=== PATIENT | male | born 1940 | race Caucasian/White ===

== ENCOUNTER 2017-09-18 17:28 | Inpatient (IN) | payer MEDICARE, BC ==
[~2017-09-18] VITALS: Ht 180.3 cm; Wt 81.6 kg
--- NOTE | ~2017-09-18 | PROC ---
[address] [address] PROCEDURE REPORT Name: MARILU CABRERA Room: [address] ADM IN M.R.#: [id number] Admission: 09/18/17 Attend Phys: Rylee Garcia MD Discharge: Date of : 40 Report #: [id number] THIS REPORT FOR: //name// For GI report, please see the Provation report in Perceptive 7 content. By: [facility]0Medical Records Staff AUGUSTINE /MARLON
--- NOTE | ~2017-09-18 | PROC ---
[address] [address] PROCEDURE REPORT Name: MARILU CABRERA Room: [address] IN M.R.#: [id number] Admission: 09/18/17 Attend Phys: Rylee Garcia MD Discharge: 09/20/17 Date of : 40 Report #: [id number] THIS REPORT FOR: //name// For GI report, please see the Provation report in Perceptive 7 content. By: 1451Medical Records Staff AUGUSTINE /MARLON
[2017-09-18 17:45] VITALS: BP 110/81
[2017-09-18] MEDS ORDERED: GLIPIZIDE-METF1 EAC2 PO (17:48)
[2017-09-18] MEDS ORDERED: JANUVIA100 MG PO (17:48)
[2017-09-18] MEDS ORDERED: FLOMAX0.4 MG PO (17:49)
[2017-09-18] MEDS ORDERED: NORVASC10 MG PO (17:49)
[2017-09-18] MEDS ORDERED: LOTENSIN20 MG PO (17:49)
[2017-09-18] MEDS ORDERED: LIPITOR10 MG PO (17:49)
[2017-09-18] MEDS ORDERED: NIACIN500 MG PO (17:49)
[2017-09-18] MEDS ORDERED: CENTRUM SILVER1 EAC5 PO (17:50)
[2017-09-18] MEDS ORDERED: VITAMIN D1000 UNI1 PO (17:50)
[2017-09-18] MEDS ORDERED: VITAMIN B-12500 MCG PO (17:50)
[2017-09-18] MEDS ORDERED: ASPIRIN325 PO (17:50)
[2017-09-18] MEDS ORDERED: NAPROSYN500 MG PO (17:50)
--- NOTE | 2017-09-18 19:05 | NUR ---
PT TRIED AND WAS NOT ABLE TO GIVE STOOL SAMPLE
[2017-09-18 19:12] LABS: ABSOLUTE EOSINOPHILS 0.1 thou/uL (0.0-0.7); ABSOLUTE LYMPHOCYTES 1.6 thou/uL (0.8-5.3); ABSOLUTE NEUTROPHILS 6.9 thou/uL (1.6-8.1); BASOPHILS 0.4 %; EOSINOPHILS 0.8 %; HEMATOCRIT 28.3 % (42.0-52.0); HEMOGLOBIN 9.8 gm/dL (14.0-18.0); LYMPHOCYTES 16.8 %; MCH 36.3 pg (26.0-34.0); MCHC 34.6 g/dL (28.0-37.0); MCV 104.7 fL (80.0-100.0); MONOCYTES 10.8 %; NUCLEATED RBCS 0 /100WBC; PLATELET COUNT* 185 thou/uL (150-400); POLYS 71.2 %; RBC 2.71 mil/uL (4.50-6.00); RDW-CV 12.5 % (10.5-14.5); WBC 9.7 thou/uL (4.0-11.0)
[2017-09-18 19:19] LABS: CALCIUM 8.5 mg/dL (8.5-10.1); CREATININE 0.9 mg/dL (0.6-1.3); POTASSIUM 4.2 mmol/L (3.5-5.1)
[2017-09-18 19:23] LABS: ALBUMIN 3.2 g/dL (3.4-5.0); TOTAL BILIRUBIN 0.3 mg/dL (<0.1-1.0); TOTAL PROTEIN 5.9 g/dL (6.4-8.2)
[2017-09-18 20:40] LABS: APTT 23.6 Seconds (25.0-31.3); PROTIME 9.9 Seconds (9.20-11.50)
[2017-09-18 21:42] VITALS: BP 157/61
[2017-09-18 22:00] VITALS: BP 163/57
[2017-09-19 04:24] VITALS: BP 135/66
--- NOTE | 2017-09-19 04:40 | NUR ---
PATIENT ARRIVED TO UNIT @ 2153 FROM ER VIA CART. AMBULATED TO BED WITHOUT DIFFICULTY. UP INDEPENDENTLY, GAIT STEADY. ALERT AND ORIENTED X 4. VITALS STABLE. RA. EDUCATED ABOUT FALL PREVENTION. NO BOWEL MOVEMENT DURING MY SHIFT. IV PATENT, SALINE LOCKED. SKIN INTACT. HOURLY ROUNDS. NURSING WILL CONTINUE TO MONITOR.
[2017-09-19 08:49] VITALS: BP 142/67
[2017-09-19 10:09] LABS: ABSOLUTE EOSINOPHILS 0.1 thou/uL (0.0-0.7); ABSOLUTE LYMPHOCYTES 1.1 thou/uL (0.8-5.3); ABSOLUTE MONOCYTES 0.9 thou/uL (0.0-1.2); ABSOLUTE NEUTROPHILS 6.3 thou/uL (1.6-8.1); BASOPHILS 0.5 %; EOSINOPHILS 0.6 %; HEMATOCRIT 29.2 % (42.0-52.0); HEMOGLOBIN 9.7 gm/dL (14.0-18.0); LYMPHOCYTES 13.3 %; MCH 36.8 pg (26.0-34.0); MCHC 33.1 g/dL (28.0-37.0); MONOCYTES 10.2 %; MPV 9.1 fl. (7.2-11.1); NUCLEATED RBCS 0 /100WBC; PLATELET COUNT* 194 thou/uL (150-400); POLYS 75.4 %; RBC 2.63 mil/uL (4.50-6.00); RDW-CV 13.5 % (10.5-14.5); WBC 8.4 thou/uL (4.0-11.0)
[2017-09-19 10:42] LABS: PLATELET ESTIMATE ADEQUATE
[2017-09-19 10:43] LABS: ANISOCYTOSIS 1+; MACROCYTES 1+; POIKILOCYTOSIS 1+
[2017-09-19 10:51] LABS: ALBUMIN 3.4 g/dL (3.4-5.0); CALCIUM 8.3 mg/dL (8.5-10.1); CREATININE 0.7 mg/dL (0.6-1.3); POTASSIUM 4.5 mmol/L (3.5-5.1); TOTAL BILIRUBIN 0.4 mg/dL (<0.1-1.0)
[2017-09-19 11:55] VITALS: BP 142/67
[2017-09-19 16:00] VITALS: BP 146/64
--- NOTE | 2017-09-19 18:56 | NUR ---
ASSUMED CARES OF PT AT 0700. PT IN BEDSIDE CHAIR. PT UP AD CHRISTELLE. PT A&O X4, VSS ON RA. HRRR PER AUSCULTATION, LCTAB. PT DENIES PAIN AT THIS TIME. AFEBRILE, PERRLA, SKIN INTACT. LEFT HAND 22 GAUGE IV PATENT TO FLUSH, SALINE LOCKED. EGD COMPLETED TODAY, BIOPSYS TAKEN. COLONOSCOPY FOR TOMORROW AFTERNOON. PT NPO AFTER 0600 TOMORROW/TUESDAY PER DR. LESLIE. HX OF ALCOHOL. HOURLY ROUNDING AND ACCU CHECKS COMPLETED THIS SHIFT. NO BLOOD REPORTED IN STOOL THIS SHIFT. REPORT TO BE GIVEN TO HOG HANDLER AT SHIFT CHANGE FOR CONTINUED CARES. CLEAR LIQUID DIET TODAY. PT PROGRESSING TOWARDS GOAL, PLEASANT AND COOPERATIVE.
--- NOTE | 2017-09-19 19:37 | EKG ---
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
[2017-09-19 21:15] VITALS: BP 163/80
[2017-09-20 00:24] VITALS: BP 137/59
[2017-09-20 02:54] VITALS: BP 142/67
[2017-09-20 04:59] LABS: ABSOLUTE EOSINOPHILS 0.1 thou/uL (0.0-0.7); ABSOLUTE LYMPHOCYTES 1.3 thou/uL (0.8-5.3); ABSOLUTE MONOCYTES 0.8 thou/uL (0.0-1.2); ABSOLUTE NEUTROPHILS 4.7 thou/uL (1.6-8.1); BASOPHILS 0.3 %; HEMATOCRIT 24.3 % (42.0-52.0); HEMOGLOBIN 8.2 gm/dL (14.0-18.0); LYMPHOCYTES 18.8 %; MCH 36.1 pg (26.0-34.0); MCHC 33.8 g/dL (28.0-37.0); MCV 106.6 fL (80.0-100.0); MONOCYTES 11.3 %; MPV 8.8 fl. (7.2-11.1); NUCLEATED RBCS 0 /100WBC; PLATELET COUNT* 155 thou/uL (150-400); POLYS 68.6 %; RBC 2.28 mil/uL (4.50-6.00); RDW-CV 12.5 % (10.5-14.5); WBC 6.9 thou/uL (4.0-11.0)
[2017-09-20 05:13] LABS: CALCIUM 8.2 mg/dL (8.5-10.1); CREATININE 0.7 mg/dL (0.6-1.3); POTASSIUM 4.1 mmol/L (3.5-5.1)
[2017-09-20 05:17] VITALS: BP 137/59
[2017-09-20 08:00] VITALS: BP 142/67; BP 161/89
--- NOTE | 2017-09-20 09:14 | NUR ---
PATIENT SLEPT OFF AND ON DURING THE NIGHT. NO C/O PAIN. NO NAUSEA OR VOMITING. PATIENT FINISHED BOWEL PREP. STOOLS ARE DARK BROWN AND LIQUID. PATIENT HAS REMAINED NPO SINCE 0600 THIS AM. MORNING NURSE INFORMED OF DARK LIQUID STOOLS. IV IN LEFT HAND-SL. PATIENT INSTRUCTED TO USE CALL LIGHT WHEN NEEDING ASSISTANCE. HOURLY ROUNDS MADE. WILL CONTINUE WITH PLAN OF CARE AND NURSING TO MONITOR.
[2017-09-20 17:15] VITALS: BP 141/63
[2017-09-20 17:33] VITALS: BP 161/89
--- NOTE | 2017-09-20 18:05 | NUR ---
PATIENT DISCHARGED TO HOME. DISCHARGE PAPERS REVIEWED AND SIGNED. NO PRESCRIPTIONS. IV REMOVED. PATIENT INSTRUCTED TO HOLD ASPIRIN FOR 5-7 DAYS AND TO ENQUIRE WITH PCP ABOUT PROTONIX AND NAPROXYN. PATIENT DENIES ANY NEEDS AT THIS TIME. PATIENT TAKEN BY WHEELCHAIR TO EXIT. LEFT WITH .
--- NOTE | 2017-09-21 16:41 | CON ---
[address] [address] CONSULTATION Name: MARILU CABRERA Room: [address] IN M.R.#: [id number] Admission: 09/18/17 Attend Phys: Rylee Garcia MD Discharge: 09/20/17 Date of : 40 Report #: [id number] THIS REPORT FOR: //name// CC: Alvaro Garcia DICTATED BY: Radha Montana [facility] DATE OF SERVICE: 09/19/2017 PRIMARY CARE PHYSICIAN: Alvaro Milner M.D. Please note at the time of this dictation, the patient was seen and physically examined by myself. REASON FOR CONSULTATION: Anemia and blood in stool. HISTORY OF PRESENT ILLNESS: This is a 77-year-old male, presented to the ER, who on Tuesday evening, he had loose stool. He did not notice any blood at that time and then he had another one again on Tuesday but on Tuesday, he had 4 very loose stools in which he noted to be very black and dark in nature but also towards some bright red blood as well. He states on Tuesday evening, he had significant heartburn prior to his episode of diarrhea but it was short-lived and he is not complaining of that or any abdominal pain at this time. The patient states that he recently had blood work done with Dr. Milner on the 28 of August and he told everything was normal and calling Dr. Milner's office. His last hemoglobin was September 02 and it was 14.8 at that time. He also has been taking naproxen and aspirin at least once or twice a day for his sciatic pain in which he is going to Physical Therapy to help with that at this time. He did have a colonoscopy done about a year ago with Dr. Dee, which was essentially negative. He had polyps removed but have always been benign. He does not recall ever having an EGD. ALLERGIES: SULFA and AUGMENTIN. MEDICATIONS: From home include Januvia, glipizide, Lotensin, Lipitor, Norvasc, Flomax, niacin, Centrum, vitamin D, vitamin B12, aspirin and naproxen. PAST MEDICAL HISTORY: Type 2 diabetes, hypertension, hypercholesterolemia, BPH and recently sciatica. PAST SURGICAL HISTORY: Negative. FAMILY HISTORY: Negative for [place] [address] CONSULTATION Name: MARILU CABRERA Room: [address]#: [id number] Admission: 09/18/17 Attend Phys: Rylee Garcia MD Discharge: 09/20/17 Date of : 40 Report #: [id number] SOCIAL HISTORY: He is , lives with his . Quit smoking 30 years ago but does drink hard liquor 3-4 on a daily basis and denies any illegal drug use. REVIEW OF SYSTEMS: Twelve-point review of systems is essentially negative except what is mentioned in the HPI. PHYSICAL EXAMINATION: VITAL SIGNS: Temperature 36.7, pulse 101, respirations 17 and blood pressure 142/67. HEART: Regular rate and rhythm. LUNGS: Clear. ABDOMEN: Soft. Positive bowel sounds in all 4 quadrants with no masses or tenderness noted. LABORATORY DATA: Hemoglobin on admission 9.8 and is 9.7, hematocrit 29.2, white count is 8.4 and platelets 194. PT 9.9 and INR 1.0. Sodium 139, potassium 4.5, chloride 103, CO2 of 27, BUN is 9, creatinine 0.7, GFR is 105 and glucose is 246. His MCV is 110. RADIOLOGICAL DATA: CT of the abdomen and pelvis shows a fatty liver, cholelithiasis, colonic diverticulosis and he has got 1 cm low density lesion at the head of his pancreas. IMPRESSION: 1. Gastrointestinal bleed, melanotic and bright red bloody stool. 2. Acute anemia. Hemoglobin on 09/02/2017 was 14.8. 3. Severe heartburn, Tuesday evening but has since improved. 4. Nonsteroidal anti-inflammatory drugs use starting over this past month for sciatica. 5. Pancreatic head lesion. 6. Alcohol misuse. PLAN: 1. EGD today with Dr. Cantu. 2. Obtain his medical records from [facility] regarding his colon. 3. We will need EUS as an outpatient to follow up his pancreatic head cyst. 4. Further recommendations to be made after the procedure has been performed. Thank you for allowing us to participate in this patient's care. Please do not hesitate to call with any questions in regard to this consult. ADDENDUM: I have personally seen and examined the patient and reviewed labs and imaging. The patient with history of colonoscopy a year ago, whose hemoglobin in August was in the mid 14 range. He presents with 2 days of melanotic stool and drop in hemoglobin of 5 gram. The patient has a 3-week history of using NSAIDs. He also uses alcohol on a regular basis. Finally, the patient admits to taking [address] [address] CONSULTATION Name: MARILU CABRERA Tamar Room: [address] IN M.R.#: [id number] Admission: 09/18/17 Attend Phys: Rylee Garcia MD Discharge: 09/20/17 Date of : 40 Report #: [id number] 325 mg of aspirin daily. He denies any dysphagia, GERD, dyspepsia, diarrhea or constipation. We will consider upper endoscopy to further evaluate his GI bleed and melanotic stool and drop in the hemoglobin. Per imaging, the patient has had pancreatic head lesion, which will require endoscopic ultrasound and we will schedule him for the same. <ELECTRONICALLY SIGNED> By: Zakia Cantu MD 09/21/17 1641 1212 1337Zakia Cantu MD /nt
--- NOTE | 2017-09-27 07:06 | PATH ---
[address] [address] PATHOLOGY RPT PROCEDURE Name: JUAN RAMON CHANEY Room: [address] IN M.R.#: [id number] Admission: 09/18/17 Date of : 40 Discharge: 09/20/17 Report #: [id number] Path Case #: [id number] [facility] Accession Number: [id number] . 01 Material submitted: . DISTAL ESOPHAGEAL BIOPSY R/O BARRETTS . 01 Clinical history: . R/O Best's . 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 - There is no definite dysplasia or malignancy. - This case is also reviewed by Dr. Melany Vale. (SHA:rufino 09/21/2017) QTP/09/21/2017 . 02 Electronically signed: . Camilo Verdugo MD, Pathologist NPI- [id number] . 01 Gross description: . The specimen is received in formalin, labeled "Juan Ramon Chaney, distal esophageal biopsy, R/O Best's". Received are three segments of pale heart soft tissue ranging in size from 0.2 to 0.6 cm in maximum dimensions. The specimen is submitted entirely in cassette A1. (CAA; 09/20/2017) QAC/QAC . 02 Pathologist provided ICD-10: K22.70, K21.0 . 02 CPT . 514714 Performed at: 01 [facility] [id number] [facility] [address], [place], [place] [id number] MD Wally Calloway MD Phone: [phone] Performed at: 02 [facility] [address], [place], [place] [id number] MD Brady Anderson MD Phone: [phone]
== END 2017-09-20 18:05 | disposition home or self-care (01) | DRG 378 ==
LOC: M.ERS 17:28 → M.TBA-ER 21:17 → M.ORTHSURG 21:17
PROVIDERS: Internal Medicine; Nurse Practitioner Family; ADMIT Internal Medicine
PROC: 0DB38ZX Excision of Lower Esophagus, Via Natural or Artificial Opening Endoscopic, Diagnostic (ICD-10-PCS; principal; 2017-09-19)
PROC: 0DJD8ZZ Inspection of Lower Intestinal Tract, Via Natural or Artificial Opening Endoscopic (ICD-10-PCS; 2017-09-20)
DX: K57.51 Diverticulosis of both small and large intestine without perforation or abscess with bleeding (principal); D62 Acute posthemorrhagic anemia; K64.4 Residual hemorrhoidal skin tags; R12 Heartburn; K86.9 Disease of pancreas, unspecified; I25.10 Atherosclerotic heart disease of native coronary artery without angina pectoris; E11.9 Type 2 diabetes mellitus without complications; E78.00 Pure hypercholesterolemia, unspecified; N40.0 Benign prostatic hyperplasia without lower urinary tract symptoms; M54.30 Sciatica, unspecified side; K22.70 Barrett's esophagus without dysplasia; K44.9 Diaphragmatic hernia without obstruction or gangrene; Z88.1 Allergy status to other antibiotic agents; Z88.2 Allergy status to sulfonamides; Z88.7 Allergy status to serum and vaccine; Z87.891 Personal history of nicotine dependence; Z72.89 Other problems related to lifestyle; Z79.82 Long term (current) use of aspirin; Z79.1 Long term (current) use of non-steroidal anti-inflammatories (NSAID); Z79.899 Other long term (current) drug therapy

== ENCOUNTER → 2018-08-28 | Outpatient (CLI) | payer MEDICARE, BC ==
[~2018-08-28] MED LIST: ASPIRIN325 PO; CENTRUM SILVER1 EAC5 PO; FLOMAX0.4 MG PO; GLIPIZIDE-METF1 EAC2 PO; JANUVIA100 MG PO; LIPITOR10 MG PO; LOTENSIN20 MG PO; NAPROSYN500 MG PO; NIACIN500 MG PO; NORVASC10 MG PO; VITAMIN B-12500 MCG PO; VITAMIN D1000 UNI1 PO
== END ==
LOC: M.CT 08:00 → M.LAB 08:00 → M.CT 08:04
DX: K86.2 Cyst of pancreas (principal); K76.0 Fatty (change of) liver, not elsewhere classified; K80.20 Calculus of gallbladder without cholecystitis without obstruction